=== PATIENT | male | born 1985 | race Caucasian/White ===

== ENCOUNTER 2020-05-18 14:50 | Emergency (ER) | payer MEDICAID, MEDICARE ==
[~2020-05-18] VITALS: Ht 180.3 cm; Wt 73.8 kg
[~2020-05-18 14:50] MED LIST: FURO40TA4 PO; LACT10SO PO; MEDICAL MARIJUANA; POTA20PA40 PO
[2020-05-18 15:05] VITALS: BP 153/85
[2020-05-18] MEDS ORDERED: polyvinyl alcohol ophthalmic drops 15ml bottle RIGHTEYE STA (16:38)
[2020-05-18] MEDS ORDERED: PEG 400/HYPROMELLOSE/GLYCERIN 15ml bottle RIGHTEYE STA (16:46)
[2020-05-18] MEDS ORDERED: AMOX500C2 PO (16:46)
[2020-05-18] MEDS ORDERED: PRED10TA PO (16:46)
[2020-05-18] MEDS ORDERED: CHLO473M3 PO (16:47)
== END 2020-05-18 17:09 | disposition home or self-care (01) ==
LOC: ER 14:50
DX: K02.9 Dental caries, unspecified (principal); G51.0 Bell's palsy; K21.9 Gastro-esophageal reflux disease without esophagitis; F12.90 Cannabis use, unspecified, uncomplicated; Z87.11 Personal history of peptic ulcer disease; Z98.890 Other specified postprocedural states; Z72.89 Other problems related to lifestyle; Z56.0 Unemployment, unspecified; Z79.2 Long term (current) use of antibiotics; Z79.899 Other long term (current) drug therapy
CPT/HCPCS: 99283

== ENCOUNTER 2020-08-28 12:12 | Emergency (ER) | payer MEDICARE, OTHER ==
[~2020-08-28] VITALS: Ht 180.3 cm; Wt 73.6 kg
[~2020-08-28 12:12] MED LIST changes: +CHLO473M3 PO; +PRED10TA PO
[2020-08-28 12:34] VITALS: BP 152/75
[2020-08-28] MEDS ORDERED: ibuprofen 200mg tablet PO ONE (14:50)
== END 2020-08-28 15:15 | disposition home or self-care (01) ==
LOC: ER 12:13
DX: M77.8 Other enthesopathies, not elsewhere classified (principal); K21.9 Gastro-esophageal reflux disease without esophagitis; K85.90 Acute pancreatitis without necrosis or infection, unspecified; K72.90 Hepatic failure, unspecified without coma; Z79.899 Other long term (current) drug therapy
CPT/HCPCS: 99282

== ENCOUNTER 2020-09-08 21:02 | Emergency (ER) | payer OTHER ==
[~2020-09-08] VITALS: Ht 180.3 cm; Wt 72.7 kg
[2020-09-08 23:17] VITALS: BP 131/78
== END 2020-09-08 23:46 | disposition home or self-care (01) ==
LOC: ER 21:03
DX: R05 Cough (principal); R19.7 Diarrhea, unspecified; M54.9 Dorsalgia, unspecified; J02.9 Acute pharyngitis, unspecified; K21.9 Gastro-esophageal reflux disease without esophagitis; K85.90 Acute pancreatitis without necrosis or infection, unspecified; K27.9 Peptic ulcer, site unspecified, unspecified as acute or chronic, without hemorrhage or perforation; K46.9 Unspecified abdominal hernia without obstruction or gangrene; F12.10 Cannabis abuse, uncomplicated; Z56.0 Unemployment, unspecified; Z79.899 Other long term (current) drug therapy; Z88.8 Allergy status to other drugs, medicaments and biological substances; Z20.828 Contact with and (suspected) exposure to other viral communicable diseases
CPT/HCPCS: 36415; 87635; 99283

== ENCOUNTER 2020-12-31 10:12 | Emergency (ER) | payer SELFPAY ==
[~2020-12-31] VITALS: Ht 200.7 cm; Wt 71.7 kg
[~2020-12-31 10:12] MED LIST changes: -LACT10SO PO; +LACT10SO3 PO
[2020-12-31 10:36] VITALS: BP 130/84
[2020-12-31 11:03] LABS: CLARITY,URINE CLEAR (Clear); COLOR,URINE YELLOW (Yellow); GLUCOSE, URINE NEGATIVE (Neg); KETONES,URINE NEGATIVE (Neg); LEUKOCYTE ESTERASE ,URINE SMALL (Neg); NITRITES, URINE NEGATIVE (Neg); OCCULT BLOOD,URINE NEGATIVE (Neg); PH,URINE 8.5 (4.8-8.0); PROTEIN,URINE NEGATIVE (Neg)
[2020-12-31] MEDS ORDERED: azithromycin 250mg tablet PO ONE (11:10)
[2020-12-31] MEDS ORDERED: CefTRIAXone 1000mg IM Kit (w/lidocaine diluent) IM STA (11:10)
[2020-12-31 11:23] LABS: UA COLLECTION TYPE VOIDED
[2020-12-31 11:24] LABS: WBC,URINE 20-30 /HPF (0-4)
[2020-12-31 11:25] LABS: BACTERIA,URINE NONE SEEN /HPF (Neg); MUCUS STRANDS FEW /LPF (Neg); RBC,URINE 0-2 /HPF (0-2); SQUAMOUS EPITHELIAL CELL,UR NONE SEEN /LPF (FEW)
== END 2020-12-31 12:10 | disposition home or self-care (01) ==
LOC: ER 10:15
DX: Z11.3 Encounter for screening for infections with a predominantly sexual mode of transmission (principal); R30.0 Dysuria; K21.9 Gastro-esophageal reflux disease without esophagitis; F12.90 Cannabis use, unspecified, uncomplicated; Z72.89 Other problems related to lifestyle; Z56.0 Unemployment, unspecified; Z98.890 Other specified postprocedural states; Z79.899 Other long term (current) drug therapy
CPT/HCPCS: 36415; 81001; 87088; 87491; 87591; 96372; 99283; J0696

== ENCOUNTER 2021-07-27 09:17 | Emergency (ER) | payer OTHER ==
[~2021-07-27] VITALS: Ht 182.9 cm; Wt 58.0 kg
[2021-07-27 09:33] VITALS: BP 157/98
[2021-07-27] MEDS ORDERED: CefTRIAXone 1000mg IM Kit (w/lidocaine diluent) IM STA (09:36)
[2021-07-27] MEDS ORDERED: azithromycin 250mg tablet PO ONE (09:40)
== END 2021-07-27 11:56 | disposition home or self-care (01) ==
LOC: ER 09:18
DX: A64 Unspecified sexually transmitted disease (principal); K21.9 Gastro-esophageal reflux disease without esophagitis; F12.90 Cannabis use, unspecified, uncomplicated; Z87.11 Personal history of peptic ulcer disease; Z98.890 Other specified postprocedural states; Z72.89 Other problems related to lifestyle; Z56.0 Unemployment, unspecified; Z79.899 Other long term (current) drug therapy
CPT/HCPCS: 36415; 87491; 87591; 96372; 99283; J0696